=== PATIENT | female | born 1985 | race American Indian/Alaskan Native ===

== ENCOUNTER 2021-02-02 16:03 | Emergency (ER) | payer MEDICAID ==
[2021-02-02 16:09] VITALS: BP 105/68
--- NOTE | 2021-02-02 16:21 | Emergency Department Report ---
ED General Adult HPI - General Chief complaint: Extremity Problem,Nontraumatic Stated complaint: LEFT THIGH PAIN Time Seen by Provider: 02/02/21 16:17 Source: patient Mode of arrival: Stretcher Limitations: No Limitations - History of Present Illness Initial comments: Patient is 35-year-old female 6 at 6 months gestation. Patient presented to the ER via EMS from home for evaluation of left thigh pain since last night. Patient denied any recent injuries however she stated that she do a lot of walking at work. Patient denied any chest pain or shortness of breath. No lower extremity swelling. Patient denied any abdominal pain, vaginal bleeding or vaginal discharge. No fever or chills. - Related Data Allergies Allergy/AdvReac Type Severity Reaction Status Date / Time No Known Allergies Allergy Unverified 02/02/21 16:09 ED Review of Systems ROS: Stated complaint: LEFT THIGH PAIN Other details as noted in HPI Comment: All other systems reviewed and negative Respiratory: denies: cough, shortness of breath, SOB with exertion Cardiovascular: denies: chest pain, palpitations Gastrointestinal: denies: abdominal pain, nausea, vomiting, diarrhea, hematemesis, hematochezia Genitourinary: denies: urgency, dysuria, frequency, hematuria, discharge Musculoskeletal: denies: back pain Neurological: denies: headache, weakness, numbness, paresthesias, confusion ED Past Medical Hx - Past Medical History Previous Medical History?: No - Surgical History Past Surgical History?: No ED Physical Exam - General Limitations: No Limitations General appearance: alert, in no apparent distress - Head Head exam: Present: atraumatic, normocephalic, normal inspection - Eye Eye exam: Present: normal appearance, PERRL - ENT ENT exam: Present: normal exam, normal orophraynx, mucous membranes moist - Neck Neck exam: Present: normal inspection, full ROM. Absent: tenderness, meningismus - Respiratory Respiratory exam: Present: normal lung sounds bilaterally - Cardiovascular Cardiovascular Exam: Present: regular rate, normal rhythm, normal heart sounds - GI/Abdominal GI/Abdominal exam: Present: soft, normal bowel sounds, other (Gravid uterus.). Absent: distended, tenderness, guarding, rebound, rigid, mass, bruit, pulsatile mass, hernia - Extremities Exam Extremities exam: Present: normal inspection, full ROM, normal capillary refill. Absent: tenderness, pedal edema, joint swelling, calf tenderness - Back Exam Back exam: Present: normal inspection, full ROM. Absent: CVA tenderness (R), CVA tenderness (L) - Neurological Exam Neurological exam: Present: alert, oriented X3, CN II-XII intact, normal gait, reflexes normal. Absent: motor sensory deficit - Psychiatric Psychiatric exam: Present: normal mood - Skin Skin exam: Present: warm, intact, normal color ED Course Vital Signs 02/02/21 16:05 Temperature 98.7 F Respiratory 18 Rate Blood Pressure 105/68 [Right] O2 Sat by Pulse 100 Oximetry ED Medical Decision Making - Radiology Data Radiology results: report reviewed - Medical Decision Making Patient is 35-year-old female 6 at 6 months gestation. Patient presented to the ER via EMS from home for evaluation of left thigh pain since last night. Patient denied any recent injuries however she stated that she do a lot of walking at work. Patient denied any chest pain or shortness of breath. No lower extremity swelling. Patient denied any abdominal pain, vaginal bleeding or vaginal discharge. No fever or chills. Patient remained stable in the ER with stable vital sign. Left lower extremity Doppler ultrasound is negative for DVT. Patient symptoms most likely related to musculoskeletal pain. Patient given prescription for Tylenol 3 and advised to follow-up with her primary doctor in the next 2 to 3 days and to return to the ER if she develop any new symptoms. Critical care attestation.: If time is entered above; I have spent that time in minutes in the direct care of this critically ill patient, excluding procedure time. ED Disposition Clinical Impression: Pain of left lower extremity Disposition: HOME / SELF CARE / HOMELESS Is pt being admited?: No Condition: Stable Instructions: Musculoskeletal Pain, How to Use Cold Therapy, [id number] Referrals: PRIMARY CARE, [Referring] - 3-5 Days
--- NOTE | 2021-02-02 16:55 | Vascular Lab Report ---
DUPLEX DOPPLER LOWER EXTREMITY VEINS, LEFT INDICATION: LEFT THIGH PAIN. TECHNIQUE: Duplex doppler imaging was performed through the veins of the left lower extremity using venous compression and other maneuvers. COMPARISON: No relevant prior imaging study available. FINDINGS: Left Common femoral vein: Negative. Left Superficial femoral vein: Negative. Left Popliteal vein: Negative. Left Calf veins: Negative. Additional findings: None. IMPRESSION: No sonographic evidence for DVT in the left lower extremity. Signer Name: Kevin Berry Jr, MD Signed: 02/02/2021 4:51 PM Workstation Name: [id number]
[2021-02-02] MEDS ORDERED: MORPHINE 4 MG/1 ML INJ IM ONE (18:18)
[2021-02-02] MEDS ORDERED: ONDANSETRON 4 MG/2 ML INJ IM ONE (18:18)
== END 2021-02-02 20:05 | disposition home or self-care (01) ==
LOC: ED 16:03
DX: O26.891 Other specified pregnancy related conditions, first trimester (principal); M79.652 Pain in left thigh; M79.651 Pain in right thigh; Z3A.01 Less than 8 weeks gestation of pregnancy
CPT/HCPCS: 93971; 96372; 99284; J2270; J2405; 99283